=== PATIENT | male | born 1930 | race Caucasian/White ===

== ENCOUNTER 2016-10-03 08:33 | Emergency (ER) | payer OTHER | END 2016-10-03 11:35 | disposition home or self-care (01) | LOC: ER 08:33 | DX: I11.0 Hypertensive heart disease with heart failure (principal); I50.9 Heart failure, unspecified; E11.9 Type 2 diabetes mellitus without complications; I25.10 Atherosclerotic heart disease of native coronary artery without angina pectoris; E03.9 Hypothyroidism, unspecified; E78.5 Hyperlipidemia, unspecified; F17.290 Nicotine dependence, other tobacco product, uncomplicated; Z79.82 Long term (current) use of aspirin; Z79.899 Other long term (current) drug therapy; Z79.84 Long term (current) use of oral hypoglycemic drugs; Z98.61 Coronary angioplasty status; R06.01 Orthopnea | CPT/HCPCS: 36415; 96374; J1940 ==

== ENCOUNTER 2016-10-19 03:05 | Emergency (ER) | payer OTHER | END 2016-10-19 05:50 | disposition home or self-care (01) | LOC: ER 03:05 | DX: I11.0 Hypertensive heart disease with heart failure (principal); I50.9 Heart failure, unspecified; I48.2 Chronic atrial fibrillation; E11.9 Type 2 diabetes mellitus without complications; E03.9 Hypothyroidism, unspecified; E78.00 Pure hypercholesterolemia, unspecified; Z95.1 Presence of aortocoronary bypass graft; Z79.82 Long term (current) use of aspirin; Z79.84 Long term (current) use of oral hypoglycemic drugs; Z79.01 Long term (current) use of anticoagulants; Z79.899 Other long term (current) drug therapy | CPT/HCPCS: 36415; 96374; J1940 ==

== ENCOUNTER 2016-10-21 13:15 | Inpatient (IN) | payer OTHER ==
[~2016-10-21] VITALS: Ht 180.3 cm; Wt 73.9 kg
--- NOTE | 2016-10-22 16:01 | NUR ---
1320- PATIENT REPORTED HE WAS PACKING UP HIS THINGS FOR HIS TRANSFER TO [facility] AND FELL INTO THE WALL. CALLED OUT [employer] SYSTEM AND NOTIFIED GRINDING WHEEL DRESSER. NURSING STAFF ENTERED ROOM AND PATIENT WAS BLEEDING. SKIN TEARS X3 NOTED TO RT. ARM. ASSISTED PATIENT BACK TO BED. SKIN TEARS CLEANSED WITH NS AND MEPILEX DRSG'S APPLIED. PATIENT STATED HIS RT. SHOULDER AND RT. KNEE WAS A LITTLE SORE. ULYSSES BEATTY ASSESSED PATIENT, NO FURTHER ORDERS RECEIVED. FAMILY PRESENT IN ROOM.
== END 2016-10-22 16:20 | disposition critical access hospital (66) | DRG 293 ==
LOC: MED 13:15
PROVIDERS: ADMIT Internal Medicine
DX: I11.0 Hypertensive heart disease with heart failure (principal); I50.33 Acute on chronic diastolic (congestive) heart failure; J20.9 Acute bronchitis, unspecified; I35.0 Nonrheumatic aortic (valve) stenosis; I25.10 Atherosclerotic heart disease of native coronary artery without angina pectoris; Z95.1 Presence of aortocoronary bypass graft; E11.9 Type 2 diabetes mellitus without complications; R74.8 Abnormal levels of other serum enzymes; I48.91 Unspecified atrial fibrillation; Z79.01 Long term (current) use of anticoagulants; N40.0 Benign prostatic hyperplasia without lower urinary tract symptoms; E78.5 Hyperlipidemia, unspecified; E03.9 Hypothyroidism, unspecified; D50.9 Iron deficiency anemia, unspecified; Z88.8 Allergy status to other drugs, medicaments and biological substances; Z79.82 Long term (current) use of aspirin; Z79.84 Long term (current) use of oral hypoglycemic drugs; Z79.899 Other long term (current) drug therapy; Z90.49 Acquired absence of other specified parts of digestive tract; Z82.49 Family history of ischemic heart disease and other diseases of the circulatory system; Z83.3 Family history of diabetes mellitus; F17.290 Nicotine dependence, other tobacco product, uncomplicated
CPT/HCPCS: 93306; J1940